=== PATIENT | male | born 1950 | race Caucasian/White ===

== ENCOUNTER 2018-07-02 10:03 | Inpatient (IN) | payer MEDICARE, OTHER ==
[~2018-07-02] VITALS: Ht 177.8 cm; Wt 94.6 kg
[~2018-07-02 10:03] MED LIST: ALDACTONE25 MG PO; AMIODARONE HCL200 MG PO; ASPIR 8181 MG PO; ATORVASTATIN CA20 MG PO; COREG12.5 MG PO; FAMOTIDINE20 MG PO; FUROSEMIDE40 MG PO; HYDROCORTISO453.6 G1 TOP; LEVAQUIN500 MG PO; LISINOPRIL10 MG PO; LOSARTAN POTASS25 MG PO; METOPROLOL SUCC25 MG PO; MULTAQ 400MG T400 MG PO; NITROSTAT0.4 MG SL; PREDNISONE10 MG PO; XARELTO10 MG PO; XARELTO20 MG PO
--- OUTSIDE RECORDS SUMMARY | 2018-07-02 10:06 | XMS REPORT | Clinical Summary ---
Author Author Helder Fam Organization [facility] [employer] Address Unknown Phone Unavailable Care Team Providers Care Rubber Goods Tester Water Name Role Phone Asked, No Pcp PCP Unavailable Allergies Not on File Medications Not on file Active Problems Not on file Social History Date Tobacco Use Types Packs/Day Years Used Never Assessed Sex Assigned at Date Recorded Not on file Industry Job Start Date Occupation Not on file Not on file Not on file Travel End Travel History Travel Start No recent travel history available. Last Filed Vital Signs Not on file Plan of Treatment Health Maintenance Due Date Last Done Comments COLON CANCER SCREENING 2002 SHINGLES VACCINES (#1) 2002 65+ PNEUMOCOCCAL VACCINE 2017 (1 of 2 - PCV13) PNEUMOCOCCAL 2017 POLYSACCHARIDE VACCINE AGE 65 AND OVER INFLUENZA VACCINE 10/20/2018 Results Not on fileafter 07/01/2017 Advance Directives Patient has advance care planning documents on file. For more information, nohemy neil contact: Helder Fam [address] [place] [address]
--- OUTSIDE RECORDS SUMMARY | 2018-07-02 10:06 | XMS REPORT ---
Author Author [facility] Address Unknown Phone Unavailable Care Team Providers Care Wearing Apparel Shaker Name Role Phone AMOL ARRIOLA Unavailable Unavailable Problems This patient has no known problems. Allergies, Adverse Reactions, Alerts This patient has no known allergies or adverse reactions. Medications This patient has no known medications. Results Test Description Test Time Test Comments Text Results Atomic Results Result Comments CHEST [address] [address] Patient Name: ARMANI BATES MR #: [id number] : 1950 Age/Sex: 66/M Req #: [id number] Adm Physician: Ordered by: AMOL ARRIOLA MD Report #: [id number] Location: RAD Room/Bed: Procedure: [id number] DX/CHEST 2 VIEWS Exam Date: 02/17/17 Exam Time: 1035 REPORT STATUS: Signed PROCEDURE: Frontal and lateral views of the chest. COMPARISON: [facility], , CHEST 2 VIEWS, 01/28/2017, 10:06. INDICATIONS: CHRONIC OBSTRUCTIVE PULMONARY DISEASE FINDINGS: Lines/tubes: None. Stable position of left subclavian approach triple lead cardiac pacemaker. Lungs: Mild bilateral hyperinflation. Mild coarsening of the pulmonary interstitium in the lower lobes. There is no evidence of pneumonia or pulmonary edema. Pleura: There is no pleural effusion or pneumothorax. Mild biapical pleural scarring. Heart and mediastinum: The cardiac silhouette is mildly enlarged in Bones: No acute bony abnormality. Mild spondylosis of the thoracic spine. IMPRESSION: 1. Cardiomegaly without acute decompensation. Mildred Agee M.D. Dictated by: Mildred Agee M.D. on 02/17/2017 at 11:38 Electronically approved by: Mildred Agee M.D. on 02/17/2017 at 11:38 Dictated By: ROGERIO AGEE MD, MD 1138 Transcribed By: CHESTER on 02/17/17 1138 COPY TO: AMOL ARRIOLA MD CHEST 2 VIEWS [place] [address] Patient Name: ARMANI BATES MR #: [id number] : 1950 Age/Sex: 66/M Req #: [id number] Adm Physician: Ordered by: AMOL ARRIOLA MD Report #: [id number] Location: [facility] Room/Bed: Procedure: [id number] DX/CHEST 2 VIEWS Exam Date: 01/28/17 Exam Time: 1020 REPORT STATUS: Signed PROCEDURE: X-RAY CHEST, TWO VIEWS COMPARISON: Chest radiograph 01/11/2017, chest CT 01/12/2017. INDICATIONS: COPD FINDINGS: Aeration of the lung bases has improved relative to 01/11/2017, with residual mild interstitial prominence. No new consolidation, pleural effusion, or pneumothorax. Stable cardiomediastinal contour and position of left subclavian approach triple lead cardiac device. No acute osseous abnor malities. Multilevel degenerative disc changes of the thoracic spine.. CONCLUSION: Interval improvement in aeration of the lung bases relative to 01/11/2017. Residual interstitial prominence is in keeping with interstitial lung disease (NSIP) as described on the comparison CT. Dictated by: Angie Thibodeaux M.D. on 01/28/2017 at 10:45 Electronically approved by: Angie Thibodeaux M.D. on 01/28/2017 at 10:45 Dictated By: ANGIE THIBODEAUX MD 1045 Transcribed By: CHESTER on 01/28/17 1045 COPY TO: AMOL ARRIOLA MD CT CHEST WO [place] [address] Patient Name: ARMANI BATES MR #: [id number] : 1950 Age/Sex: 66/M Req #: [id number] Adm Physician: AMOL ARRIOLA MD Ordered by: ANGIE MARTINEZ MD Report #: [id number] Location: MED/SURG2 Room/Bed: [facility] Procedure: [id number] CT/CT CHEST WO Exam Date: 01/12/17 Exam Time: 0850 REPORT STATUS: Signed PROCEDURE: CT CHEST WITHOUT CONTRAST CT scan of the chest WITHOUT intravenous contrast, using standard protocol. TECHNIQUE: The chest was scanned utilizing a multidetector helical scanner from the apex to the level of the adrenal glands. No IV contrast was administered without contrast per physician request. Coronal and sagittal multiplanar reformations were obtained. Total DLP: 524.5 mGy-cm COMPARISON: CT chest hi resolution 01/06/2017. INDICATIONS: SHORTNESS OF BREATH FINDINGS: Lines/tubes: Left-sided AICD device. Lungs and Airways: Diffuse interstitial/interlobular septal thickening, left greater than right with a basilar predominance. There is subpleural sparing. Previous associated groundglass alveolar opacities have significantly improved. Mild associated traction bronchiectasis predominantly lower lobes remain unchanged. No honeycombing. Mild centrilobular emphysema is unchanged. Pleura: The pleural spaces are clear. Heart and mediastinum: The thyroid gland is normal. No significant mediastinal, hilar or axillary lymphadenopathy is seen. The heart and pericardium are within normal limits. Mild atherosclerot ic calcifications in the coronary arteries. Soft tissues: Normal. Abdomen: Limited views of the upper abdomen show no abnormality within the visualized liver, spleen, pancreas, or kidneys. The adrenal glands are normal. Bones: There are degenerative changes in the thoracic spine. IMPRESSION: 1. Significant improvement in previously visualized mediastinal lymph nodes. 2. Significant improvement in groundglass opacities superimposed on chronic lung changes with the appearance of nonspecific interstitial pneumonitis (NSIP). This likely represents interval resolution of superimposed atypical infection. Dictated by: Ruthie Márquez M.D. on 01/12/2017 at 14:05 Electronically approved by: Ruthie Márquez M.D. on 01/12/2017 at 14:05 Dictated By: RUTHIE MÁRQUEZ MD 140 Transcribed By: CHESTER on 01/12/17 1405 COPY TO: ANGIE MARTINEZ MD CHEST 2 VIEWS [place] [address] Patient Name: ARMANI BATES MR #: [id number] : 1950 Age/Sex: 66/M Req #: [id number] Adm Physician: AMOL ARRIOLA MD Ordered by: AMOL ARRIOLA MD Report #: [id number] Location: MED/SURG Room/Bed: 103 Procedure: [id number] DX/CHEST 2 VIEWS Exam Date: 01/11/17 Exam Time: 0900 REPORT STATUS: Signed PROCEDURE: Frontal and lateral views of the chest. COMPARISON: Portable chest 01/07/2017. INDICATIONS: SOB, CHF FINDINGS: Lines/tubes: Left chest cardiac device with leads projecting over the expected regions of the right atrium and ventricle. Lungs: Bibasilar airspace opacifications. No parenchymal mass. Pleura: There is no pleural effusion or pneumothorax. Heart and mediastinum: The heart and the mediastinum are normal. Bones: No acute bony abnormality. Degenerative changes of the thoracic spine. IMPRESSION: Bibasilar airspace opacities may represent a developing pneumonia. Dictated by: Zulma Sims M.D. on 01/11/2017 at 10:30 Electronically approved by: Zulma Sims M.D. on 01/11/2017 at 10:30 Dictated By: ZULMA SIMS MD 1030 Transcribed By: CHESTER on 01/11/17 1030 COPY TO: AMOL ARRIOLA MD CHEST SINGLE (PORTABLE) [place] [address] Patient Name: ARMANI BATES MR #: [id number] : 1950 Age/Sex: 66/M Req #: [id number] Adm Physician: AMOL ARRIOLA MD Ordered by: ANGIE MARTINEZ MD Report #: [id number] Location: MED/SURG Room/Bed: [facility] Procedure: [id number] DX/CHEST SINGLE (PORTABLE) Exam Date: 01/07/17 Exam Time: 0528 REPORT STATUS: Signed EXAMINATION: CHEST SINGLE (PORTABLE) INDICATION: Shortness of breath COMPARISON: 01/06/2017 and 07/13/2016 FINDINGS: TUBES and LINES: AICD is intact. LUNGS: Lungs are not well inflated. There are bibasilar atelectasis. There is perihilar stable interstitial opacities, consistent with interstitial edema. PLEURA: Trace of bilateral pleural effusions. HEART AND MEDIASTINUM: Cardiac size is moderately enlarged. There are atherosclerotic calcifications within the aorta. BONES AND SOFT TISSUES: No acute osseous lesion. Soft tissues are unremarkable. UPPER ABDOMEN: No free air under the diaphragm. IMPRESSION: Stable chest with evidence of cardiogenic pulmonary edema. Signed by: Dr. Ryan Mayberry M.D. on 01/07/2017 6:05 AM Dictated By: RYAN MUNGUIA MD 4 Transcribed By: JACKI on 01/07/17604 COPY TO: ANGIE MARTINEZ MD CT CHEST WO [place] [address] Patient Name: ARMANI BATES MR #: [id number] : 1950 Age/Sex: 66/M Req #: [id number] Adm Physician: AMOL ARRIOLA MD Ordered by: ANGIE MARTINEZ MD Report #: [id number] Location: MED/SURG Room/Bed: [facility] Procedure: [id number] CT/CT CHEST WO Exam Date: 01/06/17 Exam Time: 2051 REPORT STATUS: Signed EXAM: CT Chest WITHOUT contrast 01/06/2017 7:00 PM INDICATION: Amiodarone toxicity. COMPARISON: Multiple prior chest x-rays including July 12, 2016, January 06, 2017 at 5:14 AM TECHNIQUE: Chest was scanned utilizing a multidetector helical scanner from the lung apex through the level of the adrenal glands without administration of IV contrast. Absence of intravenous contrast decreases sensitivity for detection of lymphadenopathy and vascular pathology. Coronal and sagittal reformations were obtained. High- resolution CT protocol was performed. IV CONTRAST: None RADIATION DOSE: Total DLP: 1649.82 mGy*cm Estimated effective dose: (DLP x 0.014 x size factor) mSv COMPLICATIONS: None FINDINGS: LINES/ TUBES: ACD device is present. LUNGS AND AIRWAYS: There is diffuse interstitial/interlobular septi thickening bilaterally left greater than right with bibasilar predominance associated with multiple patchy areas of interspersed groundglass alveolar opacities. There is evidence of mild traction bronchiectasis in the lower lobes and few cystic changes without honeycombing. PLEURA: The pleural spaces are clear. HEART AND MEDIASTINUM: The thyroid gland is normal. Moderately enlarged and numerous mediastinal lymph nodes are visualized in the aortopulmonary, prevascular, bilateral paratracheal and subcarinal stations. The heart is normal in size.. There is no pericardial effusion. There are mild atherosclerotic calcifications in the aorta and coronary arteries. UPPER ABDOMEN: Limited non-contrast views of the upper abdomen show no abnormality within the visualized liver, spleen, pancreas, or kidneys. The adrenal glands are normal. BONES: There are degenerative changes in the thoracic spine. SOFT TISSUES: Unremarkable. IMPRESSION: 1. Findings in the chest are compatible with nonspecific interstitial pneumonitis (NSIP) which can be seen on multiple type of drug toxicity. Amiodarone is among those, however these pattern is not pathognomonic. Signed by: Dr. Ryan Mayberry M.D. on 01/06/2017 9:39 PM Dictated By: RYAN MUNGUIA MD 38 Transcribed By: JACKI on 01/06/172138 COPY TO: ANGIE MARTINEZ MD CHEST [facility] (PORTABLE) [place] [address] Patient Name: ARMANI BATES MR #: [id number] : 1950 Age/Sex: 66/M Req #: [id number] Adm Physician: AMOL ARRIOLA MD Ordered by: WILFRED AKHTAR MD Report #: [id number] Location: MED/SURG Room/Bed: 103-1 Procedure: [id number] DX/CHEST SINGLE (PORTABLE) Exam Date: 01/06/17 Exam Time: 524 REPORT STATUS: Signed EXAMINATION: CHEST SINGLE (PORTABLE) INDICATION: Congestive heart failure COMPARISON: 07/13/2016 and 01/05/2017 FINDINGS: TUBES and LINES: AICD is intact. LUNGS: Lungs are not well inflated. There are bibasilar atelectasis. There is perihilar worsening interstitial opacities, consistent with interstitial edema. PLEURA: Trace of bilateral pleural effusions. HEART AND MEDIASTINUM: Cardiac size is moderately enlarged. There are atherosclerotic calcifications within the aorta. BONES AND SOFT TISSUES: No acute osseous lesion. Soft tissues are unremarkable. UPPER ABDOMEN: No free air under the diaphragm. IMPRESSION: Worsening interstitial edema, most likely cardiogenic. Signed by: Dr. Ryan Mayberry M.D. on 6:43 AM Dictated By: RYAN MUNGUIA MD 2 Transcribed By: JACKI on 01/06/17642 COPY TO: WILFRED AKHTAR MD CHEST 2 VIEWS [place] [address] Patient Name: ARMANI BATES MR #: [id number] : 1950 Age/Sex: 66/M Req #: [id number] Adm Physician: Ordered by: WILFRED AKHTAR MD Report #: [id number] Location: ER Room/Bed: Procedure: [id number] DX/CHEST 2 VIEWS Exam Date: Exam Time: REPORT STATUS: Signed PROCEDURE: Frontal and lateral views of the chest. COMPARISON: Patients [facility], DX, CHEST SINGLE (PORTABLE), 07/19/2016, 6:01. INDICATIONS: SHORTNESS OF BREATH FINDINGS: Lines/tubes: Triple lead left chest wall cardiac device unchanged from prior study. Lungs: Moderate pulmonary edema. Pleura: Tiny right pleural effusion. Heart and mediastinum: The heart is enlarged. Bones: No acute bony abnormality. IMPRESSION: Cardiomegaly with moderate pulmonary edema. Giorgi Branch D.O. Dictated by: Giorgi Branch D.O. on 01/05/2017 at 11:12 Electronically approved by: Giorgi Branch D.O. on 01/05/2017 at 11:12 Dictated By: GIORGI BRANCH DO 111 Transcribed By: CHESTER on 01/05/171111 COPY TO: WILFRED AKHTAR MD
[2018-07-02] MEDS ORDERED: LOSARTAN POTASS25 MG PO (10:45)
[2018-07-02 11:06] LABS: BASOPHILS % 0.2 % (0.0-1.0); EOSINOPHILS # (AUTO) 0.2 (0.0-0.4); EOSINOPHILS % 1.8 % (0.0-6.0); HEMATOCRIT 39.2 % (38.2-49.6); HEMOGLOBIN 12.5 g/dL (14.0-18.0); LYMPHOCYTES # (AUTO) 0.4 (1.0-3.2); LYMPHOCYTES % 4.7 % (18.0-39.1); MEAN CORPUSCULAR HEMOGLOBIN 35.2 pg (28-32); MEAN CORPUSCULAR HGB CONC 31.9 g/dL (31-35); MEAN CORPUSCULAR VOLUME 110.4 fL (81-99); MONOCYTES # (AUTO) 1.2 (0.2-0.8); MONOCYTES % 12.3 % (4.4-11.3); NEUTROPHILS # (AUTO) 7.5 (2.1-6.9); NEUTROPHILS % 80.1 % (38.7-80.0); PLATELET COUNT 116 x10e3/uL (140-360); RED BLOOD COUNT 3.55 x10e6/uL (4.3-5.7); RED CELL DISTRIBUTION WIDTH 14.8 % (11.7-14.4)
[2018-07-02 11:11] LABS: INR 2.33; PROTHROMBIN TIME 26.3 seconds (11.9-14.5)
[2018-07-02 11:13] LABS: PARTIAL THROMBOPLASTIN TIME 69.3 seconds (23.8-35.5)
[2018-07-02 11:20] LABS: ALBUMIN 3.6 g/dL (3.5-5.0); ALBUMIN/GLOBULIN RATIO 1.2 (0.8-2.0); ANION GAP 13.2 mmol/L (8-16); CALCIUM 9.6 mg/dL (8.4-10.2); CREATININE, SERUM 1.34 mg/dL (0.72-1.25); POTASSIUM 4.2 mmol/L (3.5-5.1)
[2018-07-02 11:27] LABS: CREATINE KINASE MB 0.8 ng/mL (0-5.0)
[2018-07-02 11:40] LABS: ANISOCYTOSIS SLIGHT; BAND NEUTROPHILS % (MANUAL) 1 %; LYMPHOCYTES % (MANUAL) 10 % (19-48); METAMYELOCYTES % (MANUAL) 1 % (0-0); MONOCYTES % (MANUAL) 10 % (3.4-9.0); NEUTROPHILS % (MANUAL) 76 % (40-74); PLATELET ESTIMATE SLIGHTLY DECREASED; PLATELET MORPHOLOGY COMMENT NORMAL; RBC MORPHOLOGY COMMENT NORMAL
[2018-07-02] MEDS ORDERED: CARVEDILOL 3.125 MG TAB PO ONE (13:30)
[2018-07-02] MEDS ORDERED: ACETAMINOPHEN 325 MG TAB PO ONE (13:30)
--- NOTE | 2018-07-02 13:52 | Diagnostic Imaging Report ---
EXAMINATION: CHEST 2 VIEWS INDICATION: COPD exacerbation. COMPARISON: None FINDINGS: TUBES and LINES: Left-sided AICD device with leads overlying the right atrium and right ventricle. LUNGS: Lungs are well inflated. There are mild patchy opacities at the lung bases. No evidence of lobar pneumonia. PLEURA: No pleural effusion or pneumothorax. HEART AND MEDIASTINUM: The cardiomediastinal silhouette is unremarkable. BONES AND SOFT TISSUES: No acute osseous lesion. Soft tissues are unremarkable. UPPER ABDOMEN: No free air under the diaphragm. IMPRESSION: Mild patchy opacities at the lung bases, which may reflect atelectasis or early pneumonia in the appropriate clinical setting. Suggest follow-up chest radiograph in 6-8 weeks to assess for resolution. Signed by: Dr. Bimal Vila MD on 07/02/2018 1:49 PM
[2018-07-02] MEDS ORDERED: CEFTRIAXONE SOD 1 GM/NS 50 ML 50 ML IV ONE (14:30)
[2018-07-02] MEDS ORDERED: FUROSEMIDE INJ 10 MG/ML 2 ML VIAL IV ONE (14:30)
[2018-07-02] MEDS ORDERED: SODIUM CHLORIDE FLUSH 10 ML SYR INJ PRN (14:45)
[2018-07-02] MEDS ORDERED: CEFTRIAXONE SOD 1 GRAM/0.9% SOD CHL 50ML BAG IV SCH (14:45)
[2018-07-02] MEDS ORDERED: AZITHROMYCIN 500MG/SOD CHL 0.9% 250ML BAG IV SCH (14:45)
[2018-07-02] MEDS: HYDROCODONE/CHLORPHENIRAMINE 5 ML LIQCR PO PRN (14:51)
[2018-07-02] MEDS ORDERED: ALBUTEROL/IPRATROPIUM 3 ML NEB NEB SCH (15:00)
[2018-07-02] MEDS: AZITHROMYCIN 500MG/NS 250 ML 250 ML IV SCH (15:16)
--- OUTSIDE RECORDS SUMMARY | 2018-07-02 15:29 | XMS REPORT | Clinical Summary ---
Author Author Helder Fam Organization [employer] Address Unknown Phone Unavailable Care Team Providers Care Nurse Coordinator Name Role Phone Asked, No Pcp PCP [...] more information, nohemy neil contact: Helder Fam [address] [place] [address]
--- NOTE | 2018-07-02 16:00 | NUR ---
pt arrived to unit via w/c resp even and unlabored at this time no distress noted, pt able to make needs known pt orient to room and call light, call light in reach. bed in lowest position, call light in reach.
[2018-07-02] MEDS ORDERED: CEFTRIAXONE SOD 1 GM/NS 50 ML 50 ML IV SCH (16:15)
[2018-07-02 16:19] VITALS: BP 100/67
[2018-07-02 16:20] VITALS: BP 100/67
[2018-07-02] MEDS: FUROSEMIDE INJ 10 MG/ML 2 ML VIAL IV SCH (18:17)
--- NOTE | 2018-07-02 19:10 | NUR ---
Patient visited in room during nursing rounds. Patient alert and oriented x3. Pt has intermittent coughs (non-productive) and on 2L NC. No distress noted. Ambulatory in room prn. On scheduled breathing treatments. Will monitor closely. Call pate within reach.
[2018-07-02 19:15] LABS: CREATINE KINASE MB 1.1 ng/mL (0-5.0)
[2018-07-02] MEDS: IPRATROPIUM BROMIDE 0.02% 2.5 ML NEB NEB SCH (19:22)
--- NOTE | 2018-07-02 19:50 | NUR ---
report given to oncoming nurse, for continued care.
[2018-07-02 20:00] VITALS: BP 111/79
[2018-07-02] MEDS: ALBUTEROL SULF 0.083% NEB SOLN 3 ML NEB NEB SCH ×2 (20:22→23:00)
[2018-07-02] MEDS ORDERED: HYDRALAZINE HCL 20 MG/ML VIAL IV PRN (20:30)
[2018-07-02] MEDS ORDERED: ONDANSETRON HCL INJ 2MG/ML 2ML 2 MG/ML VIAL IV PRN (20:30)
[2018-07-02] MEDS ORDERED: ACETAMINOPHEN 325 MG TAB PO PRN (20:30)
[2018-07-02] MEDS ORDERED: ACETAMINOPHEN/CODEINE 300MG - 30MG TAB PO PRN (20:30)
[2018-07-02] MEDS: GUAIFENESIN 600MG/DEXTROMETHORPHAN 30MG TABSR PO PRN (23:16)
[2018-07-03] VITALS: BP 116/83
[2018-07-03] MEDS: IPRATROPIUM BROMIDE 0.02% 2.5 ML NEB NEB SCH ×4 (01:00→19:06)
[2018-07-03] MEDS: HYDROCODONE/CHLORPHENIRAMINE 5 ML LIQCR PO PRN ×3 (02:38→20:07)
[2018-07-03] MEDS: ALBUTEROL SULF 0.083% NEB SOLN 3 ML NEB NEB SCH ×5 (03:00→19:06)
[2018-07-03 04:00] VITALS: BP 136/97
[2018-07-03 05:17] LABS: BASOPHILS % 0.2 % (0.0-1.0); EOSINOPHILS % 0.8 % (0.0-6.0); HEMATOCRIT 35.4 % (38.2-49.6); HEMOGLOBIN 11.3 g/dL (14.0-18.0); LYMPHOCYTES # (AUTO) 0.6 (1.0-3.2); LYMPHOCYTES % 12.1 % (18.0-39.1); MEAN CORPUSCULAR HEMOGLOBIN 35.6 pg (28-32); MEAN CORPUSCULAR HGB CONC 31.9 g/dL (31-35); MEAN CORPUSCULAR VOLUME 111.7 fL (81-99); MONOCYTES # (AUTO) 0.6 (0.2-0.8); MONOCYTES % 11.3 % (4.4-11.3); NEUTROPHILS # (AUTO) 3.9 (2.1-6.9); NEUTROPHILS % 74.6 % (38.7-80.0); PLATELET COUNT 97 x10e3/uL (140-360); RED BLOOD COUNT 3.17 x10e6/uL (4.3-5.7)
[2018-07-03 05:46] LABS: CREATINE KINASE MB 0.8 ng/mL (0-5.0)
[2018-07-03] MEDS: FUROSEMIDE INJ 10 MG/ML 2 ML VIAL IV SCH ×2 (06:00→17:40)
[2018-07-03 06:19] LABS: ANION GAP 12.2 mmol/L (8-16); BLOOD UREA NITROGEN 17 mg/dL (7-26); BUN/CREATININE RATIO 18 (6-25); CALCIUM 9.1 mg/dL (8.4-10.2); CARBON DIOXIDE 26 mmol/L (22-29); CHLORIDE 102 mmol/L (98-107); CREATININE, SERUM 0.93 mg/dL (0.72-1.25); EST GLOMERULAR FILTRATION RATE > 60 ML/MIN (60-); GLUCOSE 95 mg/dL (74-118); POTASSIUM 4.2 mmol/L (3.5-5.1); SODIUM 136 mmol/L (136-145)
[2018-07-03 07:57] VITALS: BP 138/96
[2018-07-03] MEDS: CARVEDILOL 3.125 MG TAB PO SCH ×2 (08:17→17:40)
[2018-07-03] MEDS ORDERED: FUROSEMIDE INJ 10 MG/ML 2 ML VIAL IV SCH (09:00)
--- NOTE | 2018-07-03 11:06 | Diagnostic Imaging Report ---
Examination: Single AP view of the chest. COMPARISON: None. INDICATION: Pneumonia DISCUSSION: Lines/tubes: Multi lead and ICD. Lungs: Central venous congestion. No edema. No pneumonia. Pleura: There is no pleural effusion or pneumothorax. Heart and mediastinum: The heart and the mediastinum are unremarkable. Bones and soft tissues: No acute bony abnormalities. IMPRESSION: 1. No acute cardiopulmonary abnormalities. Signed by: Dr. Levon Simpson M.D. on 07/03/2018 11:02 AM
[2018-07-03 11:43] VITALS: BP 118/86
[2018-07-03] MEDS: CEFTRIAXONE SOD 1 GM/NS 50 ML 50 ML IV SCH (14:00)
[2018-07-03] MEDS ORDERED: CEFTRIAXONE SOD 1 GRAM/0.9% SOD CHL 50ML BAG IV SCH (15:00)
[2018-07-03] MEDS: AZITHROMYCIN 500MG/NS 250 ML 250 ML IV SCH (15:15)
[2018-07-03] MEDS ORDERED: SODIUM CHLORIDE 0.9% 250ML 250 ML ONE (15:34)
[2018-07-03 15:39] VITALS: BP 108/86
[2018-07-03] MEDS: RIVAROXABAN 15 MG TABLET PO SCH (17:40)
--- NOTE | 2018-07-03 19:05 | NUR ---
atient visited in room during nursing rounds. Patient alert and oriented x3. Pt has frequent productive coughs (sputum appear whitish to yellowish in color) and on 2L NC. No distress noted. Ambulatory in room prn. On scheduled breathing treatments. Will monitor closely. Call pate within reach.
--- NOTE | 2018-07-03 19:30 | NUR ---
Tressa Pimentel (Dr. Duarte's PA) visited pt in room and aware of pt condition.
--- NOTE | 2018-07-03 19:38 | NUR ---
Report given to oncoming nurse. for continued care.
[2018-07-03 20:00] VITALS: BP 121/96
[2018-07-04] VITALS (8 sets, daily range): BP systolic 97–133; BP diastolic 80–91
[2018-07-04] MEDS: ALBUTEROL SULF 0.083% NEB SOLN 3 ML NEB NEB SCH ×5 (00:20→19:48)
[2018-07-04] MEDS: IPRATROPIUM BROMIDE 0.02% 2.5 ML NEB NEB SCH ×4 (00:20→19:48)
[2018-07-04] MEDS: HYDROCODONE/CHLORPHENIRAMINE 5 ML LIQCR PO PRN ×2 (03:38→15:57)
[2018-07-04 05:35] LABS: BASOPHILS % 0.5 % (0.0-1.0); EOSINOPHILS # (AUTO) 0.1 (0.0-0.4); EOSINOPHILS % 2.5 % (0.0-6.0); HEMATOCRIT 38.8 % (38.2-49.6); HEMOGLOBIN 12.3 g/dL (14.0-18.0); LYMPHOCYTES # (AUTO) 0.7 (1.0-3.2); LYMPHOCYTES % 17.8 % (18.0-39.1); MEAN CORPUSCULAR HEMOGLOBIN 34.5 pg (28-32); MEAN CORPUSCULAR HGB CONC 31.7 g/dL (31-35); MEAN CORPUSCULAR VOLUME 108.7 fL (81-99); MONOCYTES # (AUTO) 0.7 (0.2-0.8); MONOCYTES % 17.8 % (4.4-11.3); NEUTROPHILS # (AUTO) 2.4 (2.1-6.9); NEUTROPHILS % 60.9 % (38.7-80.0); PLATELET COUNT 108 x10e3/uL (140-360); RED BLOOD COUNT 3.57 x10e6/uL (4.3-5.7)
[2018-07-04] MEDS: FUROSEMIDE INJ 10 MG/ML 2 ML VIAL IV SCH ×2 (05:35→18:20)
[2018-07-04 05:54] LABS: BLOOD UREA NITROGEN 18 mg/dL (7-26); BUN/CREATININE RATIO 21 (6-25); CALCIUM 9.1 mg/dL (8.4-10.2); CARBON DIOXIDE 25 mmol/L (22-29); CHLORIDE 101 mmol/L (98-107); CREATININE, SERUM 0.87 mg/dL (0.72-1.25); EST GLOMERULAR FILTRATION RATE > 60 ML/MIN (60-); GLUCOSE 93 mg/dL (74-118); SODIUM 135 mmol/L (136-145)
--- NOTE | 2018-07-04 06:00 | NUR ---
Patient resting in bed comfortably. Pt states his cough is more controlled at the moment. No distress noted. Call pate within reach.
--- NOTE | 2018-07-04 07:00 | NUR ---
BEDSIDE SHIFT REPORT RECEIVED FROM NIGHT RN. PT DENIES NEEDS AT THIS TIME.
[2018-07-04] MEDS: CARVEDILOL 3.125 MG TAB PO SCH ×2 (09:28→18:19)
[2018-07-04] MEDS: GUAIFENESIN 600MG/DEXTROMETHORPHAN 30MG TABSR PO PRN (09:41)
[2018-07-04 12:16] LABS: LYMPHOCYTES % (MANUAL) 21 % (19-48); MONOCYTES % (MANUAL) 13 % (3.4-9.0); NEUTROPHILS % (MANUAL) 66 % (40-74)
[2018-07-04 12:17] LABS: ANISOCYTOSIS SLIGHT; PLATELET ESTIMATE SLIGHTLY DECREASED; PLATELET MORPHOLOGY COMMENT NORMAL; RBC MORPHOLOGY COMMENT NORMAL
[2018-07-04] MEDS: CEFTRIAXONE SOD 1 GM/NS 50 ML 50 ML IV SCH (14:15)
[2018-07-04] MEDS: AZITHROMYCIN 500MG/NS 250 ML 250 ML IV SCH (15:07)
[2018-07-04] MEDS: RIVAROXABAN 15 MG TABLET PO SCH (18:20)
--- NOTE | 2018-07-04 19:00 | NUR ---
BED SIDE REPORT GIVEN TO GREY TENDER RN
--- NOTE | 2018-07-04 22:30 | NUR ---
Chito Lozoya NP wants social work program coordinator to help rearrange appointment for patient with Dr. Troy Gomez, dermatology. 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 Patient probably will not be discharged by this date.
--- NOTE | 2018-07-04 23:39 | NUR ---
Patient ambulated to nurses station from room 208 without oxygen. O2 saturations with exertion 88%.
[2018-07-05] VITALS (9 sets, daily range): BP systolic 99–156; BP diastolic 67–106
[2018-07-05] MEDS: IPRATROPIUM BROMIDE 0.02% 2.5 ML NEB NEB SCH ×4 (01:00→14:30)
[2018-07-05] MEDS: ALBUTEROL SULF 0.083% NEB SOLN 3 ML NEB NEB SCH ×4 (03:00→14:30)
[2018-07-05] MEDS: HYDROCODONE/CHLORPHENIRAMINE 5 ML LIQCR PO PRN ×2 (03:27→20:02)
[2018-07-05] MEDS: FUROSEMIDE INJ 10 MG/ML 2 ML VIAL IV SCH ×2 (06:26→18:03)
--- NOTE | 2018-07-05 07:00 | NUR ---
BEDSIDE SHIFT REPORT RECEIVED FROM NIGHT RN. PT DENIES NEEDS AT THIS TIME.
[2018-07-05] MEDS ORDERED: PANTOPRAZOLE SOD 40 MG TABEC PO SCH (07:30)
[2018-07-05] MEDS: CARVEDILOL 3.125 MG TAB PO SCH (08:42)
[2018-07-05] MEDS ORDERED: ONDANSETRON HCL 4 MG ORAL DISINTEGRATING TAB PO PRN (10:30)
[2018-07-05] MEDS: CEFTRIAXONE SOD 1 GM/NS 50 ML 50 ML IV SCH (14:25)
[2018-07-05] MEDS: AZITHROMYCIN 500MG/NS 250 ML 250 ML IV SCH (15:44)
--- NOTE | 2018-07-05 16:05 | NUR ---
CASE MANAGEMENT ASSESSMENT Guest Attendant to bedside to discuss plan of care with patient/family. CM/SW role and care transitions discussed. Anticipated discharge plan discussed along with duration of care. CM/SW discussed patients right to make decisions in care. CM/SW work hours given. Patient lives: with Admit/Transfer: thru ED Hospital/ER visits since last admit: 0 POA/Emergency contact: Oma Keys [phone] Current/Previous Home Health: none PCP/Follow-up Care: Dr. Reji Mckenna; pt states he will follow up with Dr. Zapata on discharge Current/Previous DME: none Medications (referring to index hospitalization or the first time you were in the hospital) a. Were changes made in your medications when you were in the hospital on [date of index hospitalization]? n/a b. Did you understand the changes? n/a c. Were you able to obtain your new medications right away? n/a d. Were you able to take your medications like the doctor wanted you to? n/a e. Did the hospital give you an accurate, easy to understand list of medications when you left? n/a Scale of 1-10 how comfortable does patient feel with disease management in outpatient settin Other Services: none Employment Status: currently employed but states that he was going to retire on Wednesday Areas of Concerns: pneumonia, CHF, dyspnea Referral Needs: may need home oxygen; RT to do home o2 eval Education Needs: medical management IMM/SEGUNDO given and signed (if applicable): IMM delivered and explained to pt. He verbalized understanding. States he's ready to discharge. Signed form placed in chart. Copy to pt. Goal for discharge: Home CM/SW left business card at the bedside with contact information. Name and number was also written on the patients whiteboard. Patient verbalized understanding of discussion. CM will follow-up with ongoing discharge and transition of care needs.
--- NOTE | 2018-07-05 16:30 | NUR ---
Spoke with Chito Lozoya NP regarding dc plan. States he will check with Dr. Duarte.
[2018-07-05] MEDS ORDERED: CARVEDILOL 12.5 MG TAB PO SCH (17:00)
--- NOTE | 2018-07-05 18:00 | NUR ---
PT AMBULATED WITH PT 2 TIMES TODAY WITH O2 STATS 88 AND 89% ON EXERTION BUT DOES RECOVER. QUICKLY. QUALIFIED FOR HOME O2.
[2018-07-05] MEDS: RIVAROXABAN 15 MG TABLET PO SCH (18:03)
--- NOTE | 2018-07-05 18:46 | NUR ---
PT MISUNDERSTANDING ABOUT DISCHARGE. PT STATES THAT HE WAS TOLD HE WAS BEING DISCHARGED NOW BY DR. CLAYTON. CALLED DR. CLAYTON WHO STATED THAT HE WAS IN A CODE MEETING AND WOULD BE BACK TO THE HOSPITAL FLOOR THIS NIGHT TO SEE PT AGAIN.
--- NOTE | 2018-07-05 19:00 | NUR ---
BEDSIDE REPORT GIVEN TO CISO RN.
[2018-07-05] MEDS ORDERED: MUCINEX DM ER1 EACH PO (19:45)
[2018-07-05] MEDS ORDERED: COREG12.5 MG PO (19:45)
[2018-07-05] MEDS ORDERED: LASIX20 MG PO (19:45)
[2018-07-05] MEDS ORDERED: CEFUROXIME250 MG PO (19:45)
--- NOTE | 2018-07-05 19:49 | NUR ---
removed iv, tele for discharge.
--- NOTE | 2018-07-06 01:06 | Discharge Summary ---
PERTINENT HISTORY AND PHYSICAL FINDINGS: Mr. Keys is a 62-bgtz-yxi-male with past medical history of CHF, status post permanent pacemaker and AICD placement, atrial fibrillation, and hypertension, who presented to the emergency department with an acute shortness of breath and dry cough and the patient had reported a fever at home. ADMITTING DIAGNOSES: Included: 1. Acute respiratory insufficiency. 2. CHF exacerbation. 3. Pneumonia. 4. History of AFib. DISCHARGE DIAGNOSES: Include: 1. Stjlu-fe-onmwcnr systolic congestive heart failure exacerbation. 2. Atrial fibrillation with fluctuating heart rate. Currently on lifelong anticoagulation. 3. Bronchopneumonia. 4. 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 5. Obstructive sleep apnea. CONSULTING PHYSICIAN: Include, Dr. Pedro Pablo Zapata with Cardiology. PERTINENT DIAGNOSTICS AND LABS: On July 02, WBC 9.41, hemoglobin 12.5, hematocrit 39.2, platelets are 116,000. PT 26.3, INR 2.33, PTT 69.3. D-dimer 0.29. Sodium 138, BUN 15, creatinine 1.34, GFR 53. AST 37, ALT 68, alkaline phosphatase 33. B-type natriuretic peptide 870. Creatinine kinase 53, CK-MB 1.1, troponin I 0.030. On July 03, creatinine kinase 54, CK-MB 0.8, troponin I 0.013. B-type natriuretic peptide 354. Sodium 135. On July 02, influenza types A and B were negative. Sputum culture showed few gram positive cocci in pairs and chains. Sputum culture remains pending. Chest x-ray on the showed mild patchy opacities at the lung bases, which may reflect atelectasis or early pneumonia. Followup chest x-ray on the showed no acute cardiopulmonary abnormalities. Preliminary echocardiogram results from the showed atrial fibrillation with ejection fraction 30% to 35% of contraction. The patient had a previous heart cath with no coronary artery disease. Per documentation from Cardiology today, the patient was seen in exam by Dr. Zapata and the patient stated that he felt good and wanted to go home. Yesterday, the patient still had coughing with shortness of breath, dyspnea on exertion. Stated that he typically did not use oxygen at home, however, his had concentrator that they shared. He denied any chills and today felt even better. His physical examination remains unchanged. His heart is irregularly irregular, some mild wheezing on the right, somewhat diminished lung sounds. He had oxygen saturation testing for home oxygen. His oxygen saturation at rest on room air was 97%, when exerted it went down to 86%, however, he had a quick recovery. On 2 L of oxygen, his oxygen saturation was 100%. On discharge, the patient is on cardiac diet. Continue his antibiotics, cefuroxime. Prescription was written for 7 days. Coreg has been changed to 12.5 mg p.o. b.i.d., Mucinex DM, and Lasix 20 mg p.o. b.i.d. The patient has been encouraged not to over exert himself as he does tend to desat. Activity level as tolerated. Followup with PCP in 1 to 2 weeks. Dictated by Chito Lozoya NP MD ALAYNA QuiñonesP/JENNIFER /[id number]
== END 2018-07-05 20:30 | disposition home or self-care (01) | DRG 291 ==
LOC: ER 10:03 → ERHOLD 14:45 → MED/SURG2 15:59
PROVIDERS: ADMIT Internal Medicine; ATTEND Internal Medicine
DX: I11.0 Hypertensive heart disease with heart failure (principal); J18.0 Bronchopneumonia, unspecified organism; C49.0 Malignant neoplasm of connective and soft tissue of head, face and neck; I50.23 Acute on chronic systolic (congestive) heart failure; I48.91 Unspecified atrial fibrillation; Z79.01 Long term (current) use of anticoagulants; G47.33 Obstructive sleep apnea (adult) (pediatric); I25.10 Atherosclerotic heart disease of native coronary artery without angina pectoris; Z95.810 Presence of automatic (implantable) cardiac defibrillator; R06.89 Other abnormalities of breathing; I42.9 Cardiomyopathy, unspecified; I07.1 Rheumatic tricuspid insufficiency
CPT/HCPCS: 36415; 71045; 80048; 80053; 82550; 82553; 83880; 84484; 85025; 85379; 85610; 85730; 87040; 87070; 87071; 87205; 87400; 93005; 93306; 94640; 99284; J0456; J0696; J1940; J7050

== ENCOUNTER → 2021-06-06 | Day surgery (SDC) | payer MEDICARE ==
[2021-06-03 12:46] LABS: BASOPHILS # (AUTO) 0.1 (0.0-0.1); BASOPHILS % 0.7 % (0.0-1.0); EOSINOPHILS # (AUTO) 0.2 (0.0-0.4); EOSINOPHILS % 1.8 % (0.0-6.0); HEMATOCRIT 41.6 % (38.2-49.6); HEMOGLOBIN 13.7 g/dL (14.0-18.0); LYMPHOCYTES # (AUTO) 2.4 (1.0-3.2); LYMPHOCYTES % 25.5 % (18.0-39.1); MEAN CORPUSCULAR HGB CONC 32.9 g/dL (31-35); MEAN CORPUSCULAR VOLUME 103.2 fL (81-99); MONOCYTES # (AUTO) 1.2 (0.2-0.8); MONOCYTES % 12.9 % (4.4-11.3); NEUTROPHILS # (AUTO) 5.5 (2.1-6.9); NEUTROPHILS % 57.3 % (38.7-80.0); PLATELET COUNT 149 x10e3/uL (140-360); RED BLOOD COUNT 4.03 x10e6/uL (4.3-5.7); RED CELL DISTRIBUTION WIDTH 13.6 % (11.7-14.4)
[~2021-06-06] MED LIST changes: +CEFUROXIME250 MG PO; +FENTANYL CITRATE/PF 100MCG/2 ML INJ ONE; +LASIX20 MG PO; +LIDOCAINE HCL 2% LOCAL INJ 5 ML SDV VIAL INJ ONE; +MIDAZOLAM HCL 2 MG/2 ML VIAL ONE; +MUCINEX DM ER1 EACH PO; +PROPOFOL IV EMULSION 10 MG/ML 20 ML VIAL ONE
[2021-06-06 12:10] VITALS: BP 175/95
== END | disposition home or self-care (01) ==
LOC: OR 07:26
PROVIDERS: ATTEND Internal Medicine Gastroenterology
DX: Z12.11 Encounter for screening for malignant neoplasm of colon (principal); D12.0 Benign neoplasm of cecum; D12.2 Benign neoplasm of ascending colon; K62.1 Rectal polyp; G47.33 Obstructive sleep apnea (adult) (pediatric); I48.91 Unspecified atrial fibrillation; I11.0 Hypertensive heart disease with heart failure; I50.9 Heart failure, unspecified; E78.5 Hyperlipidemia, unspecified; Z01.810 Encounter for preprocedural cardiovascular examination; Z01.812 Encounter for preprocedural laboratory examination; Z20.822 Contact with and (suspected) exposure to COVID-19; Z79.02 Long term (current) use of antithrombotics/antiplatelets; Z79.899 Other long term (current) drug therapy; Z68.30 Body mass index [BMI] 30.0-30.9, adult; Z95.0 Presence of cardiac pacemaker; Z85.46 Personal history of malignant neoplasm of prostate
CPT/HCPCS: 36415; 45384; 45385; 85025; 88305; 93005; J2001; J2250; J2704; J3010; U0002

== ENCOUNTER 2023-11-08 18:01 | Observation (INO) | payer MEDICARE ==
[~2023-11-08] VITALS: Ht 177.8 cm; Wt 90.7 kg
[~2023-11-08 18:01] MED LIST changes: -FENTANYL CITRATE/PF 100MCG/2 ML INJ ONE; -LIDOCAINE HCL 2% LOCAL INJ 5 ML SDV VIAL INJ ONE; -MIDAZOLAM HCL 2 MG/2 ML VIAL ONE; -PROPOFOL IV EMULSION 10 MG/ML 20 ML VIAL ONE
[2023-11-08 18:50] VITALS: BP 115/86; PULSE 109; RESP 20; TEMP 97.7; O2SAT 96
[2023-11-08] MEDS ORDERED: Morphine 2mg Syringe 2 MG/ML SYR IV PRN (19:15)
[2023-11-08] MEDS ORDERED: ONDANSETRON HCL INJ 2MG/ML 2ML 2 MG/ML VIAL IV PRN (19:15)
[2023-11-08] MEDS ORDERED: ACETAMINOPHEN 325 MG TAB PO PRN (19:15)
[2023-11-08] MEDS ORDERED: HYDRALAZINE HCL 20 MG/ML VIAL IV PRN (19:15)
[2023-11-08] MEDS ORDERED: CARVEDILOL12.5 MG PO (19:46)
[2023-11-08] MEDS ORDERED: ROSUVASTATIN CA20 MG PO (19:47)
[2023-11-08 20:26] VITALS: BP 115/86; PULSE 109; RESP 20; TEMP 97.7; O2SAT 96
[2023-11-08 20:30] VITALS: BP 115/86; PULSE 109; RESP 20; TEMP 97.7; O2SAT 96
[2023-11-09] VITALS (8 sets, daily range): BP systolic 102–157; BP diastolic 44–107; PULSE 71–132; RESP 17–20; TEMP 97.4–98.2; O2SAT 95–99
[2023-11-09] MEDS: METOPROLOL TARTRATE INJ 1 MG/ML VIAL IV PRN (00:06)
[2023-11-09 02:02] LABS: TROPONIN I 0.04 ng/mL (0-0.300)
[2023-11-09] MEDS: ASPIRIN 81 MG CHEW TAB PO ONE (04:34)
[2023-11-09 05:35] LABS: BASOPHILS # (AUTO) 0.1 (0.0-0.1); BASOPHILS % 0.9 % (0.0-1.0); EOSINOPHILS # (AUTO) 0.2 (0.0-0.4); EOSINOPHILS % 3.4 % (0.0-6.0); HEMATOCRIT 41.6 % (38.2-49.6); HEMOGLOBIN 13.2 g/dL (14.0-18.0); LYMPHOCYTES # (AUTO) 1.4 (1.0-3.2); LYMPHOCYTES % 26.6 % (18.0-39.1); MEAN CORPUSCULAR HEMOGLOBIN 33.8 pg (28-32); MEAN CORPUSCULAR HGB CONC 31.7 g/dL (31-35); MEAN CORPUSCULAR VOLUME 106.4 fL (81-99); MONOCYTES # (AUTO) 0.8 (0.2-0.8); MONOCYTES % 15.4 % (4.4-11.3); NEUTROPHILS # (AUTO) 2.8 (2.1-6.9); NEUTROPHILS % 52.6 % (38.7-80.0); PLATELET COUNT 111 x10e3/uL (140-360); RED BLOOD COUNT 3.91 x10e6/uL (4.3-5.7); RED CELL DISTRIBUTION WIDTH 13.9 % (11.7-14.4); WHITE BLOOD COUNT 5.33 x10e3/uL (4.8-10.8)
[2023-11-09 05:59] LABS: ALBUMIN 3.6 g/dL (3.5-5.0); ALBUMIN/GLOBULIN RATIO 1.4 (0.8-2.0); ANION GAP 12.7 mmol/L (8-16); BILIRUBIN,TOTAL 1.6 mg/dL (0.2-1.2); CALCIUM 9.8 mg/dL (8.4-10.2); CREATININE, SERUM 1.22 mg/dL (0.72-1.25); POTASSIUM 3.7 mmol/L (3.5-5.1); TOTAL PROTEIN 6.2 g/dL (6.5-8.1)
[2023-11-09 06:36] LABS: CREATINE KINASE 47 IU/L (30-200)
[2023-11-09] MEDS: FUROSEMIDE 20 MG TAB PO SCH (09:00)
[2023-11-09] MEDS: CARVEDILOL 12.5 MG TAB PO SCH ×2 (09:02→17:32)
[2023-11-09] MEDS: ASPIRIN 81 MG ENTERIC COATED PO SCH (09:02)
[2023-11-09] MEDS: DILTIAZEM HCL 5 MG/ML 5 ML VIAL IV ONE (09:02)
[2023-11-09 11:53] LABS: TROPONIN I < 0.05 ng/mL (0.0-0.40)
[2023-11-09] MEDS: DILTIAZEM HCL ER 120 MG CAP PO SCH (12:36)
[2023-11-09 13:01] LABS: THYROID STIMULATING HORMONE 1.583 uIU/mL (0.350-4.940)
[2023-11-09 15:18] LABS: TROPONIN I 0.015 ng/mL (0-0.300)
[2023-11-09] MEDS: RIVAROXABAN 10 MG TABLET PO SCH (17:32)
[2023-11-10] VITALS: BP 128/85; PULSE 70; RESP 18; TEMP 97.2; O2SAT 96
[2023-11-10 04:00] VITALS: BP 122/84; PULSE 70; RESP 18; TEMP 97.4; O2SAT 95
[2023-11-10 08:00] VITALS: BP_DIAS 92; PULSE 71; RESP 17; TEMP 97.7; O2SAT 98
[2023-11-10 09:22] VITALS: BP 134/92; PULSE 71; RESP 17; TEMP 97.7; O2SAT 98
[2023-11-10] MEDS ORDERED: CARDIZEM CD120 MG PO (10:14)
== END 2023-11-10 11:11 | disposition home or self-care (01) ==
LOC: PREINTOOBSV 18:23 → MED/SURG3 18:30
PROVIDERS: ADMIT Internal Medicine; ATTEND Internal Medicine
DX: I48.0 Paroxysmal atrial fibrillation (principal); I48.3 Typical atrial flutter; I11.0 Hypertensive heart disease with heart failure; I50.22 Chronic systolic (congestive) heart failure; I42.0 Dilated cardiomyopathy; Z45.02 Encounter for adjustment and management of automatic implantable cardiac defibrillator; Z79.01 Long term (current) use of anticoagulants; E78.00 Pure hypercholesterolemia, unspecified; I25.10 Atherosclerotic heart disease of native coronary artery without angina pectoris; G47.33 Obstructive sleep apnea (adult) (pediatric); D64.9 Anemia, unspecified; Z11.52 Encounter for screening for COVID-19; Z91.198 Patient's noncompliance with other medical treatment and regimen for other reason; Z85.46 Personal history of malignant neoplasm of prostate; Z79.899 Other long term (current) drug therapy
CPT/HCPCS: 36415 ×2; 80053; 82550 ×2; 84443; 84484 ×2; 85025; 93306; 99252; G0378 ×3; U0002